=== PATIENT | male | born 1950 | race Caucasian/White ===

== ENCOUNTER 2016-11-13 13:38 | Observation (INO) | payer OTHER ==
[2016-11-13] MEDS ORDERED: ASPIRIN CHEW 81 MG TABLET PO STA (15:01)
[2016-11-13] MEDS ORDERED: ASPIRIN CHEW 81 MG TABLET ONE (15:14)
[2016-11-13] MEDS ORDERED: SODIUM CHLORIDE FLUSH 0.9% 10 ML SYRINGE IVP PRN ×2 (15:59→16:30)
[2016-11-13] MEDS ORDERED: PROMETHAZINE 25 MG/1 ML VIAL IM PRN ×2 (15:59→16:28)
[2016-11-13] MEDS ORDERED: ACETAMINOPHEN 325 MG TABLET PO PRN ×2 (15:59→16:30)
[2016-11-13] MEDS ORDERED: NS W/20 MEQ KCL 1,000 ML IV SCH (16:00)
[2016-11-13] MEDS ORDERED: PANTOPRAZOLE 40 MG VIAL IVP SCH ×2 (16:00→17:00)
[2016-11-13] MEDS: SODIUM CHLORIDE FLUSH 0.9% 10 ML SYRINGE IVP SCH (16:59)
[2016-11-13] MEDS: NS W/20 MEQ KCL 1,000 ML IV SCH (17:01)
[2016-11-13] MEDS ORDERED: NON FORMULARY MED (Lovastatin [Lovastatin] 40 MG) PO SCH (21:00)
[2016-11-13] MEDS ORDERED: NON FORMULARY MED (Metoprolol Succinate [Toprol Xl] 100 MG) PO SCH (21:00)
[2016-11-13] MEDS ORDERED: ATORVASTATIN 10 MG TABLET PO SCH (21:00)
[2016-11-13] MEDS ORDERED: GABAPENTIN 300 MG CAPSULE PO SCH (21:00)
[2016-11-13] MEDS ORDERED: METOPROLOL SUCCINATE 50 MG TABLET PO SCH ×2 (21:00→21:02)
[2016-11-13] MEDS ORDERED: SODIUM CHLORIDE FLUSH 0.9% 10 ML SYRINGE IVP SCH (22:00)
[2016-11-14] MEDS: NS W/20 MEQ KCL 1,000 ML IV SCH (03:06)
[2016-11-14] MEDS: SODIUM CHLORIDE FLUSH 0.9% 10 ML SYRINGE IVP SCH (05:25)
[2016-11-14] MEDS ORDERED: ENOXAPARIN 40 MG/0.4 ML SYRINGE SUBQ SCH ×2 (09:00)
[2016-11-14] MEDS ORDERED: POLYETHYLENE GLYCOL 3350 17 GM PACKET PO SCH ×2 (09:00)
[2016-11-14] MEDS ORDERED: ASPIRIN EC 81 MG TABLET PO SCH (09:00)
[2016-11-15] MEDS ORDERED: TRIAMT/HCTZ 37.5 MG/25 MG CAPSULE PO SCH (09:00)
== END 2016-11-14 11:00 | disposition home or self-care (01) ==
DX: E86.0 Dehydration (principal); N17.9 Acute kidney failure, unspecified; R27.0 Ataxia, unspecified; R47.01 Aphasia; F17.290 Nicotine dependence, other tobacco product, uncomplicated; I15.2 Hypertension secondary to endocrine disorders; F12.20 Cannabis dependence, uncomplicated; E78.1 Pure hyperglyceridemia; Z79.82 Long term (current) use of aspirin
CPT/HCPCS: 36415; 70450; 80053; 80061; 80320; 82550; 83036; 83690; 83735; 84100; 84443; 84484; 85025; 86140; 93005; 93010; 93306; 93880; 96361; 96372; 96374; 99217; 99218; 99285; A9270; J1650